=== PATIENT | male | born 1985 | race Caucasian/White ===

== ENCOUNTER 2019-10-21 14:49 | Emergency (ER) | payer MEDICAID ==
[~2019-10-21] VITALS: Ht 172.7 cm; Wt 70.3 kg
[2019-10-21 15:02] VITALS: BP_SYST 115
--- NOTE | 2019-10-21 15:09 | NUR ---
Patient triaged and placed in waiting room. VSS and patient appears in no acute distress at this time. Accompanied by girlfriend, awaiting available bed, and MD notified of need for MSE.
[2019-10-21] MEDS ORDERED: LIDOCAINE PF 1% 30ML(POUR BTL) INJ ONE (19:00)
--- NOTE | 2019-10-21 19:00 | NUR ---
Patient to ER bed to gown for evaluation. Side rails up.
--- NOTE | 2019-10-21 19:30 | NUR ---
PT TO RM 4 DR WU TO EXAM ABCESS LEFT LOWER ARM TRAY SET UP FOR INCISION AND DRAINAGE WITH LIDOCAINE 1% 20ML PTLT ARM PREP BY DR WU
--- NOTE | 2019-10-21 19:45 | NUR ---
LT LOWER ARM TO INCISION AND DRAIN ABCESS DREG TO LT ARM DR WU TO REVIEW DISCHG CARE
[2019-10-21] MEDS ORDERED: LIDOCAINE 1%, 20 ML MDV 20 ML ONE (19:52)
[2019-10-21 20:13] VITALS: BP_SYST 114
== END 2019-10-21 20:13 | disposition home or self-care (01) ==
LOC: SED 14:49
DX: L02.414 Cutaneous abscess of left upper limb (principal); Z86.19 Personal history of other infectious and parasitic diseases; F11.90 Opioid use, unspecified, uncomplicated
CPT/HCPCS: 10060; 99283; J2001 ×2; 99282

== ENCOUNTER 2021-09-07 18:14 | Emergency (ER) | payer MEDICAID, SELFPAY ==
--- NOTE | 2021-09-07 19:00 | NUR ---
UNABLE TO FIND PATIENT IN TENT OR WAITING ROOM. WILL ATTEMPT TO CALL AGAIN.
== END 2021-09-07 19:00 | disposition left against medical advice (07) ==
LOC: SED 18:14
DX: R21 Rash and other nonspecific skin eruption (principal); Z53.21 Procedure and treatment not carried out due to patient leaving prior to being seen by health care provider

== ENCOUNTER 2022-04-10 06:49 | Emergency (ER) | payer MEDICAID ==
[~2022-04-10] VITALS: Ht 175.3 cm; Wt 72.6 kg
[2022-04-10] MEDS ORDERED: NACL 0.9% 1,000 ML IV ONE (07:15)
[2022-04-10] MEDS ORDERED: KETOROLAC TROMETHAMINE 30 MG VIAL IVP ONE (07:15)
[2022-04-10] MEDS ORDERED: MORPHINE 4 MG INJ. 4 MG/ML VIAL IVP ONE (07:15)
--- NOTE | 2022-04-10 07:23 | NUR ---
PT PLACED IN ROOM 7, REPORT GIVEN TO UMAIR GREEN. PT ACCOMPANIED BY AUNT. PT IS AAOX4, C/O LOWER AB PAIN 5/10, NAUSEA AND URINARY FREQUENCY, NO PAST MED HX. RESP E/U. ON R/A. VSS. AMBULATORY.
[2022-04-10 07:28] VITALS: BP_SYST 137
--- NOTE | 2022-04-10 07:30 | NUR ---
MD ROBLEDO AT BEDSIDE FOR ASSESS.
--- NOTE | 2022-04-10 07:33 | NUR ---
Medication reconciliation completed with information provided by kAndres Any prior medication reconciliation on file was reviewed and corrected.
[2022-04-10 08:07] LABS: CREATININE 1.14 mg/dL (0.55-1.30); POTASSIUM 3.8 mmol/L (3.5-5.1)
[2022-04-10 08:13] LABS: ALBUMIN 3.6 g/dL (3.4-4.8); TOTAL BILIRUBIN 0.2 mg/dL (0.0-1.0)
[2022-04-10 08:16] LABS: BASOPHILS # (AUTO) 0.1 K/uL (0.0-0.2); BASOPHILS % (AUTO) 0.6 % (0.0-2.0); EOSINOPHILS # (AUTO) 0.1 K/uL (0.0-0.4); EOSINOPHILS % (AUTO) 1.1 % (0.0-4.0); HEMATOCRIT 40.2 % (36-54); LYMPHOCYTES # (AUTO) 1.9 K/uL (1.0-5.5); LYMPHOCYTES % (AUTO) 15.3 % (20.5-51.5); MEAN CORPUSCULAR HEMOGLOBIN 30 pg (27-31); MEAN CORPUSCULAR HGB CONC 35 % (32-36); MEAN CORPUSCULAR VOLUME 86 fL (79.0-98.0); MONOCYTES # (AUTO) 0.8 K/uL (0.0-1.0); MONOCYTES % (AUTO) 6.2 % (1.7-9.3); NEUTROPHILS # (AUTO) 9.6 K/uL (1.8-7.7); NEUTROPHILS % (AUTO) 76.8 % (40.0-70.0); PLATELET COUNT (AUTO) 181 K/uL (130-430); RED CELL DISTRIBUTION WIDTH 13.9 % (9.0-15.0); WHITE BLOOD COUNT (AUTO) 12.5 K/uL (4.8-10.8)
[2022-04-10] MEDS ORDERED: NAPR-690 PO (10:02)
--- NOTE | 2022-04-10 10:08 | NUR ---
Patient given written and verbal discharge instructions and verbalizes understanding. ER MD discussed with patient the results and treatment provided. Patient in stable condition. ID arm band removed. IV catheter removed intact and dressing applied, no active bleeding. Rx of NAPROXEN given. Patient educated on pain management and to follow up with PMD. Pain Scale 0/10. Opportunity for questions provided and answered. Medication side effect fact sheet provided.
[2022-04-10 10:12] VITALS: BP_SYST 137
--- NOTE | 2022-04-11 15:49 | NUR ---
04/10/22 Registry 54 hung Normal [place], 1L, start time 737, end time 837
== END 2022-04-10 10:10 | disposition home or self-care (01) ==
LOC: SED 06:49
DX: N23 Unspecified renal colic (principal); R11.2 Nausea with vomiting, unspecified; Z79.899 Other long term (current) drug therapy
CPT/HCPCS: 99284; 74176; 96374; 96361; 96375; 80053; 85025; 36415; 76376; J1885; J2270; J7030